=== PATIENT | male | born 1945 | race Caucasian/White ===

== ENCOUNTER 2018-11-30 14:17 | Inpatient (IN) | payer OTHER ==
[~2018-11-30] VITALS: Ht 185.4 cm; Wt 90.9 kg
[2018-11-30 14:24] VITALS: Ht 185.4 cm; Wt 90.9 kg
[2018-11-30 16:49] LABS: PLATELET COUNT 187 x10^3mcL (130-400); RED CELL DISTRIBUTION WIDTH 13.1 % (11.5-14.5)
[2018-11-30 16:51] LABS: BASOPHIL % 3.8 % (0-2)
[2018-11-30 16:55] LABS: CALCIUM 9.2 mg/dL (8.5-10.1); CARBON DIOXIDE 29.3 mmol/L (21-32); CHLORIDE SERUM 104 mmol/L (98-107); CREATININE SERUM 0.8 mg/dL (0.7-1.3); GLUCOSE SERUM 112 mg/dL (74-106); POTASSIUM SERUM 4.2 mmol/L (3.5-5.1); SODIUM SERUM 141 mmol/L (136-145)
[2018-11-30 17:05] LABS: ALBUMIN 3.5 g/dL (3.4-5.0); ALKALINE PHOSPHATASE 76 U/L (46-116); ALT/SGPT 19 U/L (16-63); AMYLASE 54 U/L (25-115); AST/SGOT 14 U/L (15-37); BILIRUBIN TOTAL 0.5 mg/dL (0.20-1.00); CHOLESTEROL 183 mg/dL (<200); LIPASE 73 IU/L (73-393); TOTAL PROTEIN, SERUM 6.7 g/dL (6.4-8.2)
[2018-11-30 17:06] LABS: HDL CHOLESTEROL 63 mg/dL (40-60)
[2018-11-30] MEDS ORDERED: OXYMORPHONE HYD10 MG PO (17:09)
[2018-11-30] MEDS ORDERED: SAL5 PO (17:10)
[2018-11-30] MEDS ORDERED: PENNSAID 2% TOP (17:10)
[2018-11-30] MEDS ORDERED: MODAFINIL200 M1 PO (17:10)
[2018-11-30] MEDS ORDERED: LIDOCAINE PAIN1 EACH TOP (17:11)
[2018-11-30 17:23] LABS: PHOSPHOROUS 3.3 mg/dL (2.5-4.9)
[2018-11-30 17:56] VITALS: BP 155/74
[2018-11-30 20:39] VITALS: BP 126/62
[2018-12-01 06:05] VITALS: BP 115/57
[2018-12-01 06:46] LABS: CALCIUM 8.7 mg/dL (8.5-10.1); CARBON DIOXIDE 26.8 mmol/L (21-32); CHLORIDE SERUM 105 mmol/L (98-107); CREATININE SERUM 0.8 mg/dL (0.7-1.3); GLUCOSE SERUM 110 mg/dL (74-106); MAGNESIUM 1.9 mg/dL (1.8-2.4); PHOSPHOROUS 3.9 mg/dL (2.5-4.9); POTASSIUM SERUM 4.8 mmol/L (3.5-5.1); SODIUM SERUM 139 mmol/L (136-145)
[2018-12-01] MEDS ORDERED: XARELTO10 M1 PO (09:15)
[2018-12-01 09:26] LABS: microscopic required? NO
[2018-12-01 09:32] LABS: UA SPECIFIC GRAVITY 1.025 (1.005-1.035); urine erythrocyte NEGATIVE (NEGATIVE)
[2018-12-01 09:52] VITALS: BP 110/55
[2018-12-01 14:19] VITALS: BP 119/65
[2018-12-01 14:38] LABS: PLATELET COUNT 153 x10^3mcL (130-400); RED CELL DISTRIBUTION WIDTH 13.5 % (11.5-14.5)
[2018-12-01 15:44] LABS: BAND NEUTROPHIL 1 % (0-10); BASOPHIL 0 % (0-2); MONOCYTE 5 % (0-7); SEGMENTED NEUTROPHILS 77 % (37-75)
[2018-12-01 15:45] LABS: PLATELET MORPHOLOGY PLATELETS DECREASED; rbc morphology (normal/abnorm) ABNORMAL (NORMAL)
[2018-12-01 16:12] VITALS: BP 119/65
[2018-12-01 17:42] LABS: AMPHETAMINE QUAL UR NONE DETECTED (See below)
== END 2018-12-01 17:25 | disposition home or self-care (01) | DRG 299 ==
LOC: ED 14:17 → DU 16:52
PROVIDERS: Emergency Medicine; ADMIT Internal Medicine
DX: I82.431 Acute embolism and thrombosis of right popliteal vein (principal); N17.0 Acute kidney failure with tubular necrosis; F11.20 Opioid dependence, uncomplicated; I82.411 Acute embolism and thrombosis of right femoral vein; R73.03 Prediabetes; G89.29 Other chronic pain; I73.9 Peripheral vascular disease, unspecified; Z98.1 Arthrodesis status; Z68.28 Body mass index [BMI] 28.0-28.9, adult; T40.2X5A Adverse effect of other opioids, initial encounter; Y92.018 Other place in single-family (private) house as the place of occurrence of the external cause; Z91.19 Patient's noncompliance with other medical treatment and regimen
CPT/HCPCS: 83880; 97116-GP; 97530-GP; J1100; J1885; J2270; J7030; Q0092

== ENCOUNTER 2018-12-20 22:33 | Inpatient (IN) | payer OTHER ==
[~2018-12-20] VITALS: Ht 182.9 cm; Wt 85.3 kg
[~2018-12-20 22:33] MED LIST: LIDOCAINE PAIN1 EACH TOP; MODAFINIL200 M1 PO; OXYMORPHONE HYD10 MG PO; PENNSAID 2% TOP; SAL5 PO; XARELTO10 M1 PO
[2018-12-20 22:37] VITALS: Ht 182.9 cm; Wt 85.3 kg
--- NOTE | 2018-12-20 23:26 | NUR ---
PT PRESENTED TO THE ED FOR PAIN IN RIGHT GROIN THAT HAS BEEN INCREASING FOR A WEEK AND A HALF. PT STATES HE WAS DX WITH DVT IN RIGHT GROIN ON Nov. 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 DENIES NAUSEA OR VOMITING. PT IS A&OX4, SPEAKING FULL CLEAR SENTENCES. CM AND O2 MONITOR IN PLACE. BREATHING EVEN AND UNLABORED. MSE COMPLETED BY DR JENKINS. WILL CONTINUE TO MONITOR.
[2018-12-20 23:32] LABS: BASOPHIL % 0.8 % (0-2); PLATELET COUNT 182 x10^3mcL (130-400); RED CELL DISTRIBUTION WIDTH 14.4 % (11.5-14.5)
[2018-12-20 23:41] LABS: CALCIUM 8.7 mg/dL (8.5-10.1); CARBON DIOXIDE 25.5 mmol/L (21-32); CHLORIDE SERUM 107 mmol/L (98-107); CREATININE SERUM 1.1 mg/dL (0.7-1.3); GLUCOSE SERUM 108 mg/dL (74-106); POTASSIUM SERUM 3.7 mmol/L (3.5-5.1); SODIUM SERUM 142 mmol/L (136-145)
[2018-12-20 23:45] LABS: ALBUMIN 3.4 g/dL (3.4-5.0); ALKALINE PHOSPHATASE 77 U/L (46-116); ALT/SGPT 19 U/L (16-63); AST/SGOT 12 U/L (15-37); BILIRUBIN TOTAL 0.7 mg/dL (0.20-1.00); CHOLESTEROL 168 mg/dL (<200); HDL CHOLESTEROL 54 mg/dL (40-60); PHOSPHOROUS 2.9 mg/dL (2.5-4.9); URIC ACID 5.4 mg/dL (3.5-7.2)
[2018-12-21] MEDS ORDERED: XARELTO10 M1 PO (00:21)
[2018-12-21] MEDS ORDERED: DIAZEPAM10 MG PO (00:24)
[2018-12-21] MEDS ORDERED: TEMAZEPAM15 MG PO (00:25)
--- NOTE | 2018-12-21 00:29 | NUR ---
PT IS OBSERVED LAYING ON GURNEY IN POSITION OF COMFORT. PT IN NAD. BREATHING EVEN AND UNLABORED. CM AND O2 MONITOR IN PLACE. PT IS AWAKE, ALERT, AND ORIENTED. WILL CONTINUE TO MONITOR.
--- NOTE | 2018-12-21 01:06 | NUR ---
PATIENT ARRIVED TO THE UNIT VIA [facility] ACCOMPANIED BY EMT AND FAMILY. BELONGINGS AT BEDSIDE. DX INTRACTABLE LEG PAIN FROM DVT. ON ROOM AIR. NO SOB OR DISTRESS NOTED. DENIES CHEST PAIN. NO C/O OF PAIN. BREATHING IS EVEN AND UNLABORED. IV TO THE LAC. SALINE LOCK. PATENT AND INTACT. NO REDNESS OR SWELLING NOTED. ORIENTED PATIENT TO THE ROOM. EDUCATED PATIENT ON THE CALL LIGHT. INSTRUCTED PATIENT TO CALL FOR ASSISTANCE. PATIENT VERBALIZED UNDERSTANDING. COMFORT AND SAFETY MEASURES MAINTAINED. BED IS LOCKED AND IN THE LOWEST POSITION. SIDE RAILS UP X2. WILL CONTINUE TO MONITOR.
[2018-12-21 01:23] VITALS: BP 134/70
--- NOTE | 2018-12-21 01:53 | NUR ---
PATIENT IS C/O OF 10/10 RIGHT LEG AND BACK PAIN. PRN MORPHINE IVP WAS ADMINISTERED PRESCRIBED. WILL CONTINUE TO MONITOR PATIENT AND ASSESS PAIN LEVEL.
--- NOTE | 2018-12-21 01:53 | NUR ---
GAVE PATIENT WATER, SNACKS, AND ICE PACK. WILL CONTINUE TO MONITOR
--- NOTE | 2018-12-21 02:29 | NUR ---
GAVE PATIENT WATER, SNACKS, AND ICE PACK. INSTRUCTED PATIENT TO CALL WHEN HER URINATES TO COLLECT URINE SAMPLE.
--- NOTE | 2018-12-21 03:25 | NUR ---
PATIENT IS RESTING IN BED COMOFRTBALY AT THIS TIME. NO C/O OF PAIN. ON ROOM AIR. NO SOB NOTED. CALL LIGHT IS WITHIN REACH. INSTRUCTED PATIENT TO CALL FOR ASSISTANCE.
[2018-12-21 05:30] VITALS: BP 106/61
--- NOTE | 2018-12-21 06:21 | NUR ---
PATIENT SLEPT IN INTERVALS THROUGHOUT THE NIGHT ON ROOM AIR. NO SOB OR DISTRESS NOTED. ON ROOM AIR. NO ACUTE CHANGES NOTED. IV TO THE LAC SALINE LOCK. PATENT AND INTACT. NO REDNESS OR SWELLING NOTED. MEDICATED WITH MORPHINE X1. COMFORT AND SAFETY MEASURES MAINTAINED. CALL LIGHT IS WITHIN REACH. WILL ENDORSE CARE TO DAY SHIFT RN.
[2018-12-21 06:28] LABS: CALCIUM 9.1 mg/dL (8.5-10.1); CARBON DIOXIDE 27.8 mmol/L (21-32); CHLORIDE SERUM 108 mmol/L (98-107); CREATININE SERUM 0.9 mg/dL (0.7-1.3); GLUCOSE SERUM 88 mg/dL (74-106); MAGNESIUM 2.1 mg/dL (1.8-2.4); PHOSPHOROUS 3.7 mg/dL (2.5-4.9); POTASSIUM SERUM 4.3 mmol/L (3.5-5.1); SODIUM SERUM 145 mmol/L (136-145)
[2018-12-21 06:50] LABS: BASOPHIL % 0.2 % (0-2); PLATELET COUNT 175 x10^3mcL (130-400); RED CELL DISTRIBUTION WIDTH 14.4 % (11.5-14.5)
--- NOTE | 2018-12-21 07:25 | NUR ---
RECEIVED PT FROM ADMINISTRATION [employer]. PT AWAKE, ALERT A/OX4. PT ON RA. NO RESP DISTRESS NOTED. LUNGS CTA. DENIES CHEST PAIN, DENIES HEADACHE. PT REPORTS PAIN "20/10" IN RIGHT GROIN AREA THAT IS CONSTANT BUT GETS RELIEF WHEN LYING DOWN. ACTIVE BOWEL SOUNDS NOTED. LAST BM 12/20/18 AT HOME PER PATIENT. PT VOIDS FREELY. IV ACCESS LAC 22G C/D/I INFUSING NS AT 100ML/HR. SAFETY MEASURES IN PLACE, BED LOW AND LOCKED. CALL LIGHT WITHIN REACH.
[2018-12-21 08:39] VITALS: BP 104/59
--- NOTE | 2018-12-21 09:04 | NUR ---
PT REQUESTING PAIN MED FOR PAIN IN RIGHT GROIN. STATES PAIN IS "20/10". MORPHINE ADMINISTERED ORDERED (SEE EMAR) WILL CONT TO MONITOR.
--- NOTE | 2018-12-21 16:28 | NUR ---
PT RESTING IN BED COMPLAINING OF A "SPLITTING HEADACHE" TYLENOL GIVEN ORDERED PRN (SEE EMAR). WILL CONTINUE TO MONITOR. ALL OTHER NEEDS MET AT THIS TIME.
[2018-12-21 18:08] VITALS: BP 129/79
--- NOTE | 2018-12-21 18:18 | NUR ---
PT IN PAIN AFTER PHYSICAL THERAPY. STATES PAIN IS "100/10". MORPHINE SULFATE ADMINISTERED ORDERED PRN (SEE EMAR). ICE PACK GIVEN FOR RELIEF. WILL MONITOR.
--- NOTE | 2018-12-21 18:53 | NUR ---
PT STABLE AT THIS TIME. PT REPORTS PAIN IS BETTER. RESTING COMFORTABLY IN BED. ALL NEEDS MET THROUGHOUT SHIFT. SAFETY MEASURES IN PLACE. WILL CONTINUE TO MONITOR AND ENDORSE TO FREIGHT SORTER.
--- NOTE | 2018-12-21 19:50 | NUR ---
RECEIVED PT FROM DAY SHIFT RN. PT IS AAOX4, DENIES ANY HEADACHE OR DIZZINESS, DENIES CHEST PAIN OR ANY DISCOMFORT. LUNG SOUNDS CTA ON RA. GENERALIZED WEAKNESS NOTED. PT USES URINAL AT BEDSDIE. IV LAC PATENT AND INFUSING WELL. PT STILL HAVING DINNER AT THIS TIME. CALL BUTTON WITHIN REACH. WILL CONTINUE TO MONITOR.
[2018-12-21 21:23] VITALS: BP 138/66
--- NOTE | 2018-12-21 23:33 | NUR ---
PT HAD MEDICATIONS AT BEDSIDE, MEDICATIONS TAKEN TO PHARMACIST DRUPAD, FILLED OUT FORMS WITH MEDICATIONS AND PLACED A COPY IN CHART. PLACED CONTROLLED MEDICATION IN MED LOCKER, PLACED NON-CONTROLLED MED IN PT CASSET AND REST OF [facility]ICA[facility]ON [facility].
--- NOTE | 2018-12-22 00:20 | NUR ---
PT STATED IV LAC WAS BOTHERING HIM, IV D/C CATHETER INTACT. NEW IV INSERTED LFA 22G FLUSHED WELL.
--- NOTE | 2018-12-22 00:54 | NUR ---
PT REPORTED HAVING PAIN, MEDICATED PER EMAR. WILL CONTINUE TO MONITOR.
--- NOTE | 2018-12-22 01:11 | NUR ---
PT REQUESTED PILOCARPINE MEDICATION AT THIS TIME, STATES HE ALWAYS TAKES IT ALONG WITH HIS PAIN MEDICAITON. DR LIZ MADE AWARE AND PLACED AN ADDITIONAL ORDER TO TAKE MEDICATION NOW.
--- NOTE | 2018-12-22 03:38 | NUR ---
ROUNDS MADE, PT IS ASLEEP BREATHING EVEN AND UNLABORED WITH NO SIGNS OF DISTRESS NOTED. IV INFUSING WELL. WILL CONTINUE TO MONITOR.
--- NOTE | 2018-12-22 04:53 | NUR ---
PT SLEPT ON AND OFF THROUGHOUT THE NIGHT WITH NO SIGNS OF DISTRESS. BREATHING EVEN AND UNLABORED ON RA WITH NO RESP DISTRESS. IV LFA PATENT AND INFUSING WELL. PT REPORTED HAVING PAIN X1, MEDICATED PER EMAR WITH RELIEF. PT USES URINAL AT BEDSIDE. CALL BUTTON WITHIN REACH. WILL CONTINUE TO MONITOR AND ENDORSE CARE TO DAY SHIFT RN.
[2018-12-22 06:14] VITALS: BP 117/58
[2018-12-22 06:17] LABS: BASOPHIL % 0.4 % (0-2); PLATELET COUNT 156 x10^3mcL (130-400); RED CELL DISTRIBUTION WIDTH 13.7 % (11.5-14.5)
[2018-12-22 06:27] LABS: CALCIUM 8.7 mg/dL (8.5-10.1); CARBON DIOXIDE 28.5 mmol/L (21-32); CHLORIDE SERUM 108 mmol/L (98-107); CREATININE SERUM 0.8 mg/dL (0.7-1.3); GLUCOSE SERUM 99 mg/dL (74-106); MAGNESIUM 1.9 mg/dL (1.8-2.4); PHOSPHOROUS 3.4 mg/dL (2.5-4.9); SODIUM SERUM 141 mmol/L (136-145)
--- NOTE | 2018-12-22 07:40 | NUR ---
PT DENIES ANY PAIN, NO SIGNS OF DISTRESS NOTED. ENDORSED CARE TO DAY SHIFT RN, ALL QUESTIONS ADDRESSED.
--- NOTE | 2018-12-22 08:44 | NUR ---
PATIENT IN BED RESTING. NO COMPLAINTS OF PAIN, SPEAKING IN WELFARE ELIGIBILITY WORKER [place]. PATIENT USING URINAL. CALL LIGHT IN REACH, BED IN LOWEST POSITION. FURTHER ASSISTANCE OFFERED.
[2018-12-22 09:16] VITALS: BP 110/61
--- NOTE | 2018-12-22 11:04 | NUR ---
PATIENT HAS COMPLAINTS OF R LEG PAIN. PRN HOME MEDICATION OF OXYMORPHINE GIVEN PO, W PILOCARPINE PO AT PATIENT REQUEST. PATIENT WITH PHYSICAL THERAPIST.
--- NOTE | 2018-12-22 11:32 | NUR ---
AFTER MULTIPLE ATTEMPTS PATIENT REFUSED TO BE SEEN/WORK W/ P.T., STATES WANTING TO SEE HIS DOCTOR AND/OR SURGEON BEFORE PARTICIPATING W/ P.T., ALSO STATES IN A LOT OF PAIN, INFORMED THE RN, RN GAVE MEDICATION STILL CONTINUED TO REFUSE, WHEN TOLD THAT WE WILL ATTEMPT TO SEE PATIENT AGAIN TOMORROW, PATIENT RESPONDS W/ "DON'T BOTHER WASTING YOUR TIME." RN PRESENT, MADE CHARGE NURSE AND SUPERVISING P.T. AWARE.
--- NOTE | 2018-12-22 11:57 | NUR ---
PHONE CALL RECEIVED FROM PATIENT JORGE ASH, COMPLAINING THAT PATIENT IS NOT BEING TAKEN CARE OF AND PATIENT HAS TOLD HER THAT HE IS NOT BEING UPDATED TO THE SITUATION OR TEST RESULTS. EXERCISER HORSE [place] WAS IN PATIENT ROOM THIS AM AT 0800 TO SPEAK WITH PATIENT. PATIENT JORGE THAT SHE WOULD FILE A COMPLAINT. NOTIFIED JORGE THAT PATIENT HAS HAD HIS PAIN CONTROLLED. NOTIFIED CHARGE NURSE PABLO, WILL NOTIFY ANA M BOYLE.
--- NOTE | 2018-12-22 12:02 | NUR ---
PATIENT IN BED SLEEPING. WILL CONTINUE TO MONITOR FOR PAIN, SOB. COLD COMPRESSES PLACED ON TRAY WILL GIVE TO PATIENT WHEN AWAKE. CALL LIGHT IN REACH.
--- NOTE | 2018-12-22 12:06 | NUR ---
SPOKE WITH ANA M BOYLE VIA PHONE TO INFORM HER ABOUT PATIENT'S FIANCE COMPLAINTS. ANA M WHITAKER STATED THAT SHE WILL BE UP TO THE FLOOR TO SPEAK WITH PATIENT AGAIN W CHARGE NURSE AND PRIMARY NURSE ESTEFANIA. ANA M BOYLE ALSO RECOMMENDED TO CALL DR RUVALCABA FOR PSYCH HOT AIR FURNACE INSTALLER REPAIRER. WILL CONTINUE TO MONITOR PATIENT, AWAIT REJOGGER ARRIVAL.
[2018-12-22 12:46] LABS: microscopic required? NO
[2018-12-22 13:08] LABS: urine erythrocyte NEGATIVE (NEGATIVE)
--- NOTE | 2018-12-22 14:05 | NUR ---
Initial Nutrition Assessment Dx: Intractable leg pain from DVT PMHx: Osteoarthritis, chronic pain, spinal bone spurs, B/L DVT PSHx: Arthroscopy (knee), Spinal fusion T3, Multiple nerve release procedures for neuromas Labs: (12/22) Na 141, K 5, BG 99, A1c 5.8, WBC 6.6, H/H 13.2/39L Meds: Colace, [place], NSIV, Tylenol, Valium, Xarelto, Zofran Diet: Regular PO Intake: (12/22) B: 100% (12/21) B/L/D: 100% Ht: 72" (183 cm) Wt: 188# (85.3 kg) BMI: 25.5 (Overweight) IBW: 178# %IBW: 105% UBW: 190# Age: 73 y/o elderly male Food Allergies: Cucumbers Skin: Intact Chapo: 16 Edema: None GI: Last BM x 1 (12/20), active bowel sounds per pumping supervisor notes Per H&P, pt. admitted with RLE pain x 1 day associated with suprapubic pain that is sharp in nature and radiates down the leg and lower back. Pt. has notable history of non-compliance to DVT medications prescribed 3 weeks ago, in which he was admitted to facility for similar complaints. Pelvic CT scan conducted on 12/20/18 with unremarkable findings per provider notes. Pt. otherwise endorses excellent appetite and no GI distress associated with diet order. Receives snacks and beverages per RN as requested. Denies any losses in appetite or recent significant weight changes. T: Poor PO intake >3 days, unintentional weight loss -10# x 1 month Problem with: No c/o N/V/D/C Problems with: Chewing: N Swallowing: N Current appetite: Excellent Recent wt change: None %wt change: N/A Vitamin/Supplement use: None Special diet at home: Regular Physical activity: None, unable d/t chronic LE pain from DVT. Encouraged exercises while sitting down as tolerated. Education: No diet education provided during visit. Estimated Nutritional Needs Based on actual body weight 85.3 kg: Energy: 8217-0299 kcal/d (25-27 kcal/kg- geriatric maintenance) Protein: 68-85 g/d (0.8-1.0 g/kg)-maintenance and preservation of lean body mass Fluid: 9666-5994 ml/d (1 ml/kcal-fluid balance) or per doctor Nutrition Diagnosis Overweight r/t sedentary lifestyle AEB pt. reports of not participating in physical activities on a regular basis 2/2 chronic conditions and measured BMI 25.5. Intervention/RD recommendations 1. Continue regular diet, as diet order meets >75% estimated calorie and protein needs. 2. Encouraged pt. to participate in light stretches while sitting for mild physical activities as tolerated. Monitor/Evaluate Goal: PO intake at least 75% of estimated needs Monitor: PO intake, Labs, GI function, diet tolerance, weights F/U in 7 days as low risk (12/29)
--- NOTE | 2018-12-22 14:45 | NUR ---
MEETING HELD AT PATIENT BEDSIDE W PATIENT, BAND INSTRUMENT REPAIRER [place], EVELYNE NGUYEN, EVELYNE MAC, DR. GODFREY, RAIL SETTER MARICHUY, RAIL SETTER ERIC. SPOKE TO PATIENT ABOUT PLAN OF CARE, NOTIFIED PATIENT OF AVAILABLE RESOURCES W OUTSIDE SALES REPRESENTATIVE GROCERIES, & ANSWERED FURTHER QUESTIONS PATIENT HAD ABOUT HIS PAIN & DVT PROGNOSIS. PATIENT STATED UNDERSTANDING AND AWARE OF PLAN OF CARE. CALL LIGHT IN REACH, FURTHER ASSISTANCE OFFERED.
--- NOTE | 2018-12-22 15:07 | NUR ---
BOOKSEAMER BLINDSTITCH LATASHA CENTENO AND DR. GODFREY AT BEDSIDE WITH TWO RN PRESENT, ANA M PAGAN ADDRESSED CONCERN AND QUESTIONS PATIENT HAVE, UPDATED POC, REFERRAL TO TABLE GAMES DEALER FOR F/U DVT AND PAIN CONTROL. PATIENT VERBALIZE PAIN REGIME HERE IS NOT EFFECTIVE. WILL F/U WITH PAIN MANAGEMENT DOCTOR.
[2018-12-22 15:16] LABS: AMPHETAMINE QUAL UR NONE DETECTED (See below)
[2018-12-22 16:51] VITALS: BP 95/50
--- NOTE | 2018-12-22 17:00 | NUR ---
PATIENT RESTING IN BED, CONTINUES TO HAVE PAIN IN R GROIN AREA. 2 COLD COMPRESSES GIVEN TO PATIENT. PRN HOME OXYMORPHONE & PILOCARPINE PO GIVEN. WILL CONTINUE TO MONITOR, CALL LIGHT IN REACH. BED IN LOWEST POSITION.
--- NOTE | 2018-12-22 18:00 | NUR ---
PER ECHO REPORT LEFT VENTRICLES ARE NORMAL. LVEF 60-65% AND DR. MALDONADO SEEN PATIENT AT THIS TIME AND GAVE THE RESULT OF ECHO, PLACE IN CHART.
--- NOTE | 2018-12-22 18:35 | NUR ---
PATIENT IN BED RESTING, EATING DINNER TRAY. CURRENTLY HAS NO COMPLAINTS OF PAIN, TOLERATED POSITION CHANGES. NO SOB. PATIENT EXPRESS CONCERN ABOUT TRANSPORTATION UPON DISCHARGE WELL ADLS AT HOME. ALSO STATES THAT IF POSSIBLE TO GET IMAGING RESULTS ON SEPARATE IDENTICALS CD-ROMS WELL MULTIPLE COPIES FOR HIS VARIOUS SPECIALISTS. INFORMED PATIENT THAT HIS REQUESTS WILL BE ENDORSED TO ONCOMING NURSE. NO US OF GROIN THIS SHIFT, PATIENT AWARE THAT HIS BLADDER NEEDS TO BE FULL DURING SCAN AND VERBALIZES UNDERSTANDING. CALL LIGHT IN REACH, BED IN LOWEST POSITION.
--- NOTE | 2018-12-22 20:00 | NUR ---
PT IS AWAKE AND ORIENTED X4. PT DENIES SCANLON OR DIZZINESS AT THIS TIME. PT IS CALM AND COOPERATIVE WITH NURSING CARE. PT DENIES CP OR PRESSURE. PT HAS PALPABLE PULSES BILAT ALL EXTREMITIES. NO SIGNS OF EDEMA. PT ON XARELTO WITH NO SIGNS OF ACTIVE BLEEDING. PT HAS CLEAR LUNG SOUNDS. RESPIRTIONS EVEN AND UNLABORED ON ROOM AI. PT DENIES SOB. PT HAS ACTIVE BOWEL SOUNDS. ABD ROUND, SOFT, AND NONTENDER TO TOUCH. PT DENIES ABD PAIN AND N/V AT THIS TIME. PT VOIDS FREELY ON OWN. PT HAS GENERALIZED WEAKNESS. PT SKIN CDI. IV FLUIDS NS RUNNING AT 100 ML/HR TO LFA. IV PATENT WITH GOOD BLOOD RETURN. PT REPORTS PAIN BUT STATES PAIN IS TOLERABLE AT THIS TIME. NO SIGNS OF DISTRESS. WILL CONTINUE TO MONITOR.
[2018-12-22 21:19] VITALS: BP 103/51
--- NOTE | 2018-12-22 22:38 | NUR ---
PRN TORADOL GIVEN AT THIS TIME ORDERED. WILL CONTINUE TO MONITOR.
--- NOTE | 2018-12-22 23:00 | NUR ---
PRN MORPHINE 4MG GIVEN ORDERED. PT DENIES SOB. RESPIRATIONS EVEN AND UNLABORED. PT AWAKE AND ORIETNED X4. WILL CONTINUE TO MONITOR.
--- NOTE | 2018-12-23 | NUR ---
PT ABLE TO AMBULATE TO RESTROOM WITH SUPERVISED ASSIST. PT REPORTS PAIN TOLERABLE. NO SIGNS OF DISTRESS. WILL CONTINUE TO MONITOR.
--- NOTE | 2018-12-23 03:05 | NUR ---
PT REMAINS IN BED AT THIS TIME RESTING WITH EYES CLOSED. NO SIGNS OF DISTRESS. WILL CONTINUE TO MONITOR.
--- NOTE | 2018-12-23 05:09 | NUR ---
PT C/O RIGHT GROIN PAIN. PRN TORADOL GIVEN ORDERED. WILL CONTINUE TO MONITOR.
--- NOTE | 2018-12-23 05:30 | NUR ---
PT C/O PAIN TO RIGHT GROIN. PRN MORPHINE GIVEN ORDERED. WILL CONTINUE TO MONITOR.
[2018-12-23 05:36] VITALS: BP 122/53
--- NOTE | 2018-12-23 05:57 | NUR ---
PT IS CALM AND COOPERATIVE WITH NURSING CARE. PT REPORTS ALLEVIATION OF PAIN WITH PRN PAIN MEDICATIONS, AND IS ABLE TO AMBULATE WITH SUPERVISED ASSIST TO RESTROOM. PT SLEPT THROUGHOUT THE EVENING. ALL PT NEEDS MET. NO SIGNS OF DISTRESS. WILL ENDORSE TO DAY NURSE.
[2018-12-23 06:55] LABS: CALCIUM 8.4 mg/dL (8.5-10.1); CARBON DIOXIDE 28.3 mmol/L (21-32); CHLORIDE SERUM 111 mmol/L (98-107); CREATININE SERUM 0.9 mg/dL (0.7-1.3); GLUCOSE SERUM 83 mg/dL (74-106); POTASSIUM SERUM 5.5 mmol/L (3.5-5.1); SODIUM SERUM 145 mmol/L (136-145)
[2018-12-23 06:56] LABS: BASOPHIL % 0.5 % (0-2); PLATELET COUNT 146 x10^3mcL (130-400); RED CELL DISTRIBUTION WIDTH 14.5 % (11.5-14.5)
--- NOTE | 2018-12-23 07:35 | NUR ---
RECEIVED PATIENT SLEEPING IN BED, AROUSABLE. TRACE OF EDEMA NOTED TO LLE. PATIENT C/O PAIN WHEN AMBULATING. NO SOB NOTED, PT ON ROOM AIR. GENERALIZED WEAKNESS NOTED WITH AMBULATION. NS IV TO LFA INFUSING AT 100ML/HR, IV SITE CDI, PATENT, NO ERYTHEMA, PAIN OR EDEMA AT SITE. INSTRUCTED PATIENT TO CALL FOR ASSISTANCE WHEN NEEDED, CALL LIGHT WITHIN REACH, BED IN LOW POSITION. SIDE RAILS UP X2, FOR SAFETY PRECAUTION. WILL CONTINUE TO MONITOR FOR CHANGES.
--- NOTE | 2018-12-23 08:40 | NUR ---
HEEL TURNER MUTUC AT BEDSIDE DISCUSSING POC WITH PT. HEEL TURNER ASKED PT IF HE WOULD LIKE TO GO TO SNF OR ACUTE REHAB TO HELP WITH MOBILITY AND PAIN. PT WAS AGREABLE TO FIND PLACEMENT WITH PREFERENCE AT [facility]. HEEL TURNER NOTIFIED PT SHE WILL SPEAK WITH CM AND DISCUSSED IF CONTRACTED AND QUALIFIED FOR [facility] AND WILL RETURN LATER TODAY TO LET HIM KNOW PLAN.
[2018-12-23 09:40] VITALS: BP 124/68
--- NOTE | 2018-12-23 17:10 | NUR ---
PHYSICAL THERAPY AT BEDSIDE.
[2018-12-23 18:05] VITALS: BP 132/71
--- NOTE | 2018-12-23 19:00 | NUR ---
PATIENT IS SITTING UP AT BEDSIDE, NO ACUTE CHANGES THROUGH OUT SHIFT. PATIENT STABLE AT THIS TIME. PATIENT DENIES PAIN AT THIS TIME. NS IV INFUSING TO LFA AT 100ML/HR, IV SITE CDI, NO ERYTHEMA, EDEMA, OR PAIN. CALL LIGHT WITHIN REACH, SIDE RAILS X2 FOR SAFETY PRECAUTION. WILL ENDORSE REPORT TO NIGHT NURSE.
--- NOTE | 2018-12-23 19:30 | NUR ---
RECEIVED REPORT FROM DAY SHIFT RN. PT RESTING IN BED COMFORTABLY. AA&O X4. NO SOB ON ROOM AIR. NO C/O PAIN AT THIS TIME. IV TO LFA, NS INFUSING. SAFETY MEASURES IN PLACE. BED IN LOWEST POSITION. SIDE RAILS UP X2. INSTRUCTED PT TO USE THE CALL LIGHT FOR ASSISTANCE. CALL LIGHT WITHIN REACH.
[2018-12-23 21:35] VITALS: BP 117/62
--- NOTE | 2018-12-24 01:18 | NUR ---
PT SLEEPING AT THIS TIME. NO SOB ON ROOM AIR. NO FACIAL GRIMACING. NO DISTRESS NOTED. SAFETY MEASURES IN PLACE. CALL LIGHT WITHIN REACH. WILL CONTINUE TO MONITOR.
--- NOTE | 2018-12-24 05:27 | NUR ---
PT C/O RIGHT GROIN AND BLE STABBING PAIN 08/12. MEDICATED WITH TORADOL.
[2018-12-24 05:58] LABS: BASOPHIL % 0.6 % (0-2); PLATELET COUNT 149 x10^3mcL (130-400); RED CELL DISTRIBUTION WIDTH 14.1 % (11.5-14.5)
[2018-12-24 06:00] VITALS: BP 126/55
[2018-12-24 06:27] LABS: CALCIUM 8.6 mg/dL (8.5-10.1); CARBON DIOXIDE 29.6 mmol/L (21-32); CHLORIDE SERUM 110 mmol/L (98-107); CREATININE SERUM 0.8 mg/dL (0.7-1.3); GLUCOSE SERUM 95 mg/dL (74-106); POTASSIUM SERUM 5.1 mmol/L (3.5-5.1); SODIUM SERUM 140 mmol/L (136-145)
--- NOTE | 2018-12-24 07:50 | NUR ---
RECEIVED PT IN BED. ASSESSED AND DOCUMENTED. STABLE. DENIES ANY PAIN THIS TIME. SAFTEY PRECAUTIONS ARE IN PLACE. WILL MONITOR.
--- NOTE | 2018-12-24 09:52 | NUR ---
PT SAID HE HAS RT GROIN PAIN AND BLE PAIN. MEDICATED PT WITH OXYMORPHONE AND PILOCARPINE PT REQUESTED PER ORDER.
[2018-12-24 09:59] VITALS: BP 126/62
--- NOTE | 2018-12-24 10:52 | NUR ---
PT IS SATBLE. DENEIS PAIN THIS TIME. RESTING IN BED.
--- NOTE | 2018-12-24 13:19 | NUR ---
PT C/O BLE PAIN, MEDICATED PT WITH TORADOL PO ORDERED. WILL REASSESS.
--- NOTE | 2018-12-24 14:04 | NUR ---
PT CALLED AND REQUESTED FOR MORPHINE PO AND GIVEN, ALSO HE REQUESTED TO ASK THE DOCTOR TO CHANGE TORADOL AND MORPHINE TO IV, INFORMED ABOUT THAT. NO NEW ORDER RECEIVED THIS TIME.
--- NOTE | 2018-12-24 15:04 | NUR ---
PT IS SLEEPING THIS TIME, STABLE. DENIES ANY PAIN.
[2018-12-24 18:21] VITALS: BP 155/86
--- NOTE | 2018-12-24 19:18 | NUR ---
PT RESTING IN BED COMFORTABLY, DENIES ANY PAIN. GAVE REPORT TO STEAM SHOVELMAN NURSE.
--- NOTE | 2018-12-24 20:10 | NUR ---
Awake and verbally responsive. No respiratory distress noted on room air. Denies n/v. C/o pain to BLE, will medicate as ordered. Requesting to ask doctor for IV pain med. made aware, no new order given. Pt.made aware and verbalized understanding that all pain med is in oral form. Will cont.to monitor. Ambulating with fww with steady gait. Safety maintained.
[2018-12-24 21:30] VITALS: BP 136/70
--- NOTE | 2018-12-25 04:20 | NUR ---
Afebrile. On and off BLE and groin pain. Medicated with oral toradol and morphine with help. In no apparent distress.
[2018-12-25 05:51] VITALS: BP 109/50
[2018-12-25 06:13] LABS: BASOPHIL % 0.3 % (0-2); PLATELET COUNT 148 x10^3mcL (130-400)
[2018-12-25 06:51] LABS: CALCIUM 8.4 mg/dL (8.5-10.1); CHLORIDE SERUM 108 mmol/L (98-107); CREATININE SERUM 0.9 mg/dL (0.7-1.3); GLUCOSE SERUM 88 mg/dL (74-106); MAGNESIUM 1.9 mg/dL (1.8-2.4); PHOSPHOROUS 4.2 mg/dL (2.5-4.9); POTASSIUM SERUM 4.6 mmol/L (3.5-5.1); SODIUM SERUM 143 mmol/L (136-145)
--- NOTE | 2018-12-25 07:30 | NUR ---
PT SITTING UP IN BED WATCHING TV. A/OX4. DENIES CHEST PAIN/PRESSURE. MED SURG. RESPIRATIONS EQUAL AND UNLABORED ON RA. NO ACUTE RESP DISTRESS NOTED. IV SALINE LOCKED TO LFA. NO REDNESS OR SWELLING NOTED. DENIES ANY PAIN AT THIS TIME. TRACE EDEMA NOTED TO BLE. PT STATES HE SOMETIMES EXPERIENCES GROIN PAIN BUT NOT AT THIS TIME. WILL CONTINUE TO MONITOR. CALL LIGHT IN REACH. BED IN LOWEST POSITION.
[2018-12-25 09:10] VITALS: BP 117/59
--- NOTE | 2018-12-25 10:22 | NUR ---
PT INFORMED THAT HE NEEDS TO BE THE PERSON TO CALL CAN CANCEL HIS COMPLAINT IN ORDER FOR TRANSFER TO [facility] TO TAKE PLACE. PT STATES "I WILL NOT CANCEL MY COMPLAINT UNTIL I KNOW I WILL BE LEAVING FOR [facility]. I WILL CANCEL IT AN HOUR BEFORE I AM ABOUT TO BE TRANSFERRED." PT STATES "THEY ARE JUST TRYING TO BLACKMAIL ME BY TELLING ME TO CANCEL MY COMPLAINT"
--- NOTE | 2018-12-25 12:09 | NUR ---
PT SITTING UP IN BED, FAMILY AT BEDSIDE. PT STATES TORADOL HAS NOT HELPED IMPROVE PAIN. PT STILL C/O BACK PAIN 08/12. GIVEN MORPHINE IV. WILL CONTINUE TO MONITOR. CALL LIGHT IN REACH. BED IN LOWEST POSITION.
--- NOTE | 2018-12-25 14:49 | NUR ---
AFTER MULTIPLE ATTEMPTS PATIENT REFUSED TO BE SEEN BY P.T., DUE TO PAIN, WILL ATTEMPT AGAIN TOMORROW.
--- NOTE | 2018-12-25 15:47 | NUR ---
PT SITTING UP IN BED. PT STATES HIS PAIN IS MUCH BETTER SINCE RECEIVING IV MORPHINE AND TORADOL. PT STATES HE SPOKE WITH [facility] AND THEY STATED THEY WILL BE ABLE TO TAKE HIM LATER TONIGHT OR TOMORROW MORNING. PT STATES HE WAS TOLD BY SOMEONE AT [facility] HE DOES NOT HAVE TO DROP HIS COMPLAINT BEFORE BEING TRANSFERRED. PT STATED "I WILL NOT DROP MY COMPLAINT BECAUSE I CAN STILL GO TO [facility]"
--- NOTE | 2018-12-25 15:48 | NUR ---
PHYSICAL THERAPY DAILY NOTES CO-SIGN All documentation done by the Harvest Crew Supervisor for 12/25/18 has been reviewed. I agree with the documentation. Reviewed/Co-Signed by: Lisette Flores PT Documentation Done by:PAM MENDEZ
--- NOTE | 2018-12-25 17:42 | NUR ---
PT SITTING UP IN BED. PT C/O PAIN 05/12 TO BLE. PT GIVEN TORADOL IVP. TOLERATED WELL. IV FLUSHED WELL. WILL CONTINUE TO MONITOR. CALL LIGHT IN REACH. BED IN LOWEST POSITION/
[2018-12-25 18:20] VITALS: BP 109/53
--- NOTE | 2018-12-25 18:55 | NUR ---
PT IN BED SLEEPING. RESPIRATIONS EQUAL AND UNLABORED ON RA. NO ACUTE RESP DISTRESS NOTED. IV SALINE LOCKED. NO REDNESS OR SWELLING NOTED. WILL ENDORSE TO FOREIGN EXCHANGE DEALER RN. WILL CONTINUE TO MONITOR. CALL LIGHT IN REACH. BED IN LOWEST POSITION.
--- NOTE | 2018-12-25 20:00 | NUR ---
PT RECIEVED SLEEPING BUT EASILY AROUSABLE,REG RESP NO SOB V/S STABLE,KEPT CLEAN AND DRY TO TOUCH,HL TO THE SITE PATENT AND INTACT,HOB.KEPT CLEAN AND DRY TO TOUCH,CALL LIGHT EASY REACHED AND WILL CONTINUE TO MONITOR.
[2018-12-25 20:52] VITALS: BP 102/52
--- NOTE | 2018-12-25 23:00 | NUR ---
PT STILL SLEEPING AT THIS TIME AND WILL CONTINUE TO MONITOR.
--- NOTE | 2018-12-25 23:42 | NUR ---
PT AWAKE AND EATING HIS DINNER AND C/O OF PAIN TO BLE CARMPING IN NATURE AT THE SCALE OF 8/10,PT WAS MEDICATED WITH TORADOL 30 MG IV ORDER AND WANT THE MORPHINE 4MG IV ALSO 30 MINUTES LATER PER PATIENT THAT HOW IS GETTING HIS PAIN MEDS,TRY TO EXPLAIN TO PATIENT WE CAN DO THAT BUT PATIENT NON COMPLAINT,PT SITTING ON HIS BED EATING AT THIS TIME,WILL CONTINUE TO MONITOR.
--- NOTE | 2018-12-26 02:05 | NUR ---
PT SLEEPING SOUNDLY AT THIS TIME,WILL CONTINUE TO MONITOR.
--- NOTE | 2018-12-26 03:49 | NUR ---
PT SLEEPING SOUNDLY AT THIS TIME AND WILL CONTINUE TO MONITOR.
[2018-12-26 06:05] VITALS: BP 123/69
--- NOTE | 2018-12-26 06:49 | NUR ---
PT HAD RESTING NIGHT NO CHANGE AT THIS TIME,WILL CONTINUE TO MONITOR.
--- NOTE | 2018-12-26 07:30 | NUR ---
RECEIVED PT FROM TRANSPORTATION PLANNING ENGINEER RN. Lyric/ARA. MED SURG. DENIES CHEST PAIN/PRESSURE. RESPIRATIONS EQUAL AND UNLABORED ON RA. NO ACUTE RESP DISTRESS NOTED. IV SALINE LOCKED TO LFA. NO REDNESS OR SWELLING NOTED. PT STATES PAIN IS 5/10, BUT IS TOLERABLE, SINCE RECEIVING PAIN MEDICATION THIS MORNING. PT REQUESTING TO SHOWER. WILL CONTINUE TO MONITOR. CALL LIGHT IN REACH. BED IN LOWEST POSITION.
--- NOTE | 2018-12-26 09:37 | NUR ---
DR. LUEVANO AND DR. HARRISON AT BEDSIDE PT STATES HIS PAIN IS BETTER MANAGED WITH IV PAIN MEDICATION AND IS OKAY WITH POC.
[2018-12-26 09:46] VITALS: BP 135/72
--- NOTE | 2018-12-26 13:50 | NUR ---
SPOKE WITH MARICHUY IN CASE MANAGEMENT MARICHUY IS TRYING TO GET A HOLD OF PT TO HAVE A THREE WAY CONFERENCE CALL WITH [facility]. PT STATES HE DOES NOT WANT TO BE THE ONE TO TALK TO THEM, HE WANTS HIS FRIEND TRACEY TO SPEAK WITH THEM. SPOKE WITH RESTRICTIVE PREPARATION OPERATOR ERIC, PER ERIC SINCE PT IS ABLE TO MAKE DECISIONS ON HIS OWN HE NEEDS TO BE THE ONE THEY SPEAK WITH. INFORMED PT. PT STATES "I DONT WANT TO BE THE ONE TO SPEAK WITH THEM. ILL ONLY SPEAK WITH THEM IF TRACEY IS THE ONE WHO IS AVAILABLE TO LISTEN TO CALL. I WILL LET YOU KNOW IN 15 MINUTES WHAT I DECIDE" RESTRICTIVE PREPARATION OPERATOR MARICHUY MADE AWARE OF SITUATION.
--- NOTE | 2018-12-26 14:15 | NUR ---
PHYSICAL THERAPY DAILY NOTES CO-SIGN All documentation done by the Parlor Chaperone for 12/26/18 has been reviewed. I agree with the documentation. Reviewed/Co-Signed by: Lisette Flores PT Documentation Done by:PAM MENDEZ
--- NOTE | 2018-12-26 14:33 | NUR ---
PT SITTING UP IN BED ON PHONE WITH FRIEND TRACEY. PT IS ANGRY AND YELLING ON THE PHONE. PT STATES HIS FAMILY IS UPSET WITH THE HOSPITAL AND THINKS THE HOSPITAL IS WITHHOLDING INFORMATION FROM THEM. PT STATES THE HOSPITAL MESSED UP BY TALKING TO HIS FAMILY. THIS NURSE HAS HAD NO COMMUNICATION WITH FAMILY MEMBERS ONLY PT.
--- NOTE | 2018-12-26 15:34 | NUR ---
SPOKE WITH MARICHUY IN CASE MANAGEMENT. PER MARICHUY PT APPEAL WAS DENIED. MARICHUY REQUESTING TO SPEAK WITH PT TO PLAN TRANSPORTATION FOR PT. WILL INFORM PT.
--- NOTE | 2018-12-26 16:23 | NUR ---
PT UPSET REQUESTING TO HAVE HIS MEDICAL RECORDS GIVEN TO HIM PRIOR TO TRANSFER TO [facility]. PT STATES "I WILL NOT LEAVE HERE UNTIL I HAVE MY MEDICAL RECORDS ON SEPERATE DISK FOR EACH OF MY DOCTORS. IF YOU GUYS CANT PROVIDE IT FOR ME I WILL JUST GO HOME" SPOKE WITH DR. HARRISON AND INFORMED HIM OF THE SITUATION. PER DR. HARRISON HE WILL SPEAK WITH THE PT.
[2018-12-26 16:34] VITALS: BP 128/63
[2018-12-26] MEDS ORDERED: NAR4I IV (16:45)
[2018-12-26] MEDS ORDERED: TOR30I IV (16:45)
[2018-12-26] MEDS ORDERED: MOR4I IV (16:45)
[2018-12-26] MEDS ORDERED: ZOFI IV (16:46)
[2018-12-26 17:37] VITALS: BP 128/63
--- NOTE | 2018-12-26 18:09 | NUR ---
VIRI ROSARIO GAVE REPORT TO JOSE STUBBS.
--- NOTE | 2018-12-26 18:48 | NUR ---
REPORT GIVEN TO [employer]. PT SIGNED DISCHARGE PAPER WORK, PT TAKEN OFF UNIT VIA [employer] TO [facility].
== END 2018-12-26 18:45 | DRG 552 ==
LOC: ED 22:33 → MU 12-21 00:16
PROVIDERS: Emergency Medicine; Internal Medicine; ADMIT Family Medicine
DX: M54.9 Dorsalgia, unspecified (principal); I82.431 Acute embolism and thrombosis of right popliteal vein; G89.29 Other chronic pain; M79.604 Pain in right leg; M19.90 Unspecified osteoarthritis, unspecified site; I10 Essential (primary) hypertension; F32.9 Major depressive disorder, single episode, unspecified; F17.210 Nicotine dependence, cigarettes, uncomplicated; Z68.25 Body mass index [BMI] 25.0-25.9, adult; Z96.652 Presence of left artificial knee joint; Z98.1 Arthrodesis status; Z86.718 Personal history of other venous thrombosis and embolism; Z79.01 Long term (current) use of anticoagulants; Z91.19 Patient's noncompliance with other medical treatment and regimen
CPT/HCPCS: 83880; 97110-GP; 97116-GP; 97530-GP; J1885; J2270; J3010; J3490; J7030; Q0092

== ENCOUNTER 2019-02-27 14:31 | Emergency (ER) | payer OTHER ==
[~2019-02-27] VITALS: Ht 182.9 cm; Wt 90.7 kg
[~2019-02-27 14:31] MED LIST changes: +DIAZEPAM10 MG PO; +MOR4I IV; +NAR4I IV; +TEMAZEPAM15 MG PO; +TOR30I IV; +ZOFI IV
[2019-02-27 17:20] VITALS: BP 137/79
== END 2019-02-27 17:20 | disposition home or self-care (01) ==
LOC: ED 14:31
DX: T24.602A Corrosion of second degree of unspecified site of left lower limb, except ankle and foot, initial encounter (principal); T23.621A Corrosion of second degree of single right finger (nail) except thumb, initial encounter; T32.0 Corrosions involving less than 10% of body surface; Z96.653 Presence of artificial knee joint, bilateral; Z98.890 Other specified postprocedural states; Z60.2 Problems related to living alone; Z88.5 Allergy status to narcotic agent; Z88.8 Allergy status to other drugs, medicaments and biological substances; Z91.018 Allergy to other foods; T52.0X1A Toxic effect of petroleum products, accidental (unintentional), initial encounter; Y93.89 Activity, other specified; Y92.89 Other specified places as the place of occurrence of the external cause; Y99.8 Other external cause status
CPT/HCPCS: 90715